=== PATIENT | female | born 1960 | race Caucasian/White ===

== ENCOUNTER → 2018-02-08 | Outpatient (CLI) | payer OTHER ==
[~2018-02-08] MED LIST: IOHEXOL 350 MG/ML 100 ML (OMNIPAQUE 350) VIAL IV ONE; NS 250 ML (IVPB) BAG IV ONE; RECEIVED CONTRAST (Hold Metformin) IV SCH
[2018-02-08 09:40] LABS: HEMOGLOBIN 13.6 G/DL (11.5-16.0); MEAN PLATELET VOLUME 9.6 FL (7.4-10.4); RED BLOOD COUNT 4.2 10^6/uL (4.35-5.85); RED CELL DISTRIBUTION WIDTH 12.6 % (10.0-14.5); WHITE BLOOD COUNT 4.1 10^3/uL (4.3-11.0)
[2018-02-08 10:01] LABS: ALANINE AMINOTRANSFERASE 16 U/L (0-55); ALBUMIN 4.3 GM/DL (3.2-4.5); ALKALINE PHOSPHATASE 49 U/L (40-136); BILIRUBIN,TOTAL 0.7 MG/DL (0.1-1.0); BUN/CREATININE RATIO 10; CALCIUM 9.3 MG/DL (8.5-10.1); CARBON DIOXIDE 23 MMOL/L (21-32); CHLORIDE 106 MMOL/L (98-107); CREATININE SERUM 0.86 MG/DL (0.60-1.30); GFR ESTIMATED > 60; GLUCOSE 103 MG/DL (70-105); POTASSIUM 3.7 MMOL/L (3.6-5.0); SODIUM 139 MMOL/L (135-145); TOTAL PROTEIN 7.2 GM/DL (6.4-8.2)
--- NOTE | 2018-02-08 11:38 | Diagnostic Imaging Report ---
PROCEDURE: CT abdomen and pelvis with contrast. TECHNIQUE: Multiple contiguous axial images were obtained through the abdomen and pelvis after administration of intravenous contrast. INDICATION: Abdominal pain COMPARISON: There are no prior studies available for comparison. FINDINGS: There is a large predominant cystic mass arising from the pelvis and extending cephalad into the left upper quadrant. This mass measures 18.8 x 27.0 x 30.4 cm in maximum AP, transverse and longitudinal dimensions. I suspect that this is arising from one of the ovaries and most likely this is a cystadenoma or cystadenocarcinoma. An OB-[employer] COVERER consult would be recommended. There is also a small amount of free fluid in the pelvis. This is nonspecific. The uterus is generally unremarkable. The appendix was visualized and is not abnormally thickened. There is a 1.2 cm cyst in the medial aspect of the right lobe of the liver. The liver is otherwise fairly homogeneous. The gallbladder is not well-distended and consequently difficult to assess. There is no evidence for cholelithiasis or acute cholecystitis. The spleen, pancreas, adrenals, kidneys, aorta and inferior vena cava are unremarkable for an acute abnormality. There is a 1 cm benign-appearing cyst within the right kidney. The stomach is not well-distended and consequently difficult to assess. The lung bases are clear. The bone windows show no sign of a fracture or of a destructive lesion. IMPRESSION: 1. There is a large mass arising from the pelvis and extending cephalad into the left upper quadrant. This is most likely ovarian in nature. Whether this is a cystadenoma, or cystadenocarcinoma is not certain. Recommendations as above. 2. There is no acute abnormality of the abdomen and pelvis noted otherwise. 3. The results were discussed with Deedee Haque. RESPIRATORY CARE ASSISTANT. Dictated by: Dictated on workstation # [id number]
== END ==
LOC: RAD 09:23
PROVIDERS: ATTEND Nurse Practitioner Family
DX: R19.07 Generalized intra-abdominal and pelvic swelling, mass and lump (principal)
CPT/HCPCS: 36415; 74177; 80053; 85027; 86301; 86304